=== PATIENT | male | born 1975 | race African-American/Black ===

== ENCOUNTER 2016-07-29 11:25 | Emergency (ER) | payer OTHER | END 2016-07-29 11:27 | disposition home or self-care (01) | LOC: CFTX 11:25 | DX: S56.911A Strain of unspecified muscles, fascia and tendons at forearm level, right arm, initial encounter (principal); K04.7 Periapical abscess without sinus; F17.210 Nicotine dependence, cigarettes, uncomplicated; X58.XXXA Exposure to other specified factors, initial encounter; Y92.9 Unspecified place or not applicable | CPT/HCPCS: 99283 ==